=== PATIENT | female | born 1970 | race Caucasian/White ===

== ENCOUNTER 2022-03-22 22:16 | Emergency (ER) | payer BC ==
[2022-03-22 23:03] LABS: HEMOGLOBIN 14.9 gm/dl (12.3-15.3); RED BLOOD COUNT 4.82 M/UL (4.00-5.10); WHITE BLOOD COUNT 10.5 K/UL (4.5-11.0)
[2022-03-22 23:23] LABS: BUN/CREATININE RATIO 19 (0-10)
[2022-03-23] MEDS ORDERED: AMOX TR-K CLV1 EAC4 PO (02:15)
== END 2022-03-23 02:25 | disposition home or self-care (01) ==
LOC: ER1 22:16
PROVIDERS: Emergency Medicine
DX: R10.12 Left upper quadrant pain (principal)
CPT/HCPCS: 80053; 81001; 82550; 82553; 83690; 84484; 85025; 93005; 99284; Q9967